=== PATIENT | female | born 1950 ===

== ENCOUNTER 2025-08-08 11:53 | Day surgery (SDC) | payer MEDICARE, BC ==
[~2025-08-08 11:53] MED LIST: Midazolam 1 MG/ML 2 ML SDV ONE; Propofol 200 MG/20 ML SDV ONE; Sodium Chloride 0.9% 10 ML Syringe FLUSH PRN
[2025-08-08] MEDS: Lactated Ringers 1,000 ML IV SCH (13:02)
== END 2025-08-08 14:35 | disposition home or self-care (01) ==
LOC: LL.SDS 11:53
PROVIDERS: ATTEND Surgery
DX: K20.0 Eosinophilic esophagitis (principal); K21.9 Gastro-esophageal reflux disease without esophagitis; K31.7 Polyp of stomach and duodenum; K44.9 Diaphragmatic hernia without obstruction or gangrene; Z79.899 Other long term (current) drug therapy
CPT/HCPCS: 00731; 99100; J1596; J2250; J2704; J7120